=== PATIENT | male | born 1990 | race Caucasian/White ===

== ENCOUNTER 2021-09-01 19:02 | Inpatient (IN) ==
--- NOTE | 2021-09-01 19:26 | Emergency Department Note ---
History of Present Illness General Chief complaint: Mental Health Evaluation Stated complaint: MENTAL HEALTH EVAL Time Seen by Provider: 09/01/21 19:14 Source: patient, RN notes reviewed and police Mode of arrival: other (Police ) Limitations: no limitations History of Present Illness This patient is a 30-year-old male has history of bipolar disorder is brought in by the police after his and thought of hurting himself. He had been spending the night on campus with a friend and he says he ran out of money his family want help him he feels like they're stabbing in the back. He does take Trileptal and Depakote for bipolar and seizures is not had any for several days. He thought about walking in front of a car but did not he did not take any extra medicine or overdose denies aspirin or drug use no alcohol. Denies any street drugs. He feels he needs to come in for mental health help. He denies any physical complaints. He has not had the Covid vaccine. Denies cough or shortness of breath or fever or chills. Home Medications Medication Instructions Recorded Confirmed Type divalproex 250 mg tablet,extended 250 mg PO BID 08/31/21 09/01/21 History release 24 hr (Depakote ER) divalproex 500 mg tablet,extended 500 mg PO BID 08/31/21 09/01/21 History release 24 hr (Depakote ER) mirtazapine 15 mg tablet (Remeron) 15 mg PO HS 08/31/21 09/01/21 History oxcarbazepine 600 mg tablet 600 mg PO BID 08/31/21 09/01/21 History (Trileptal) divalproex 250 mg tablet,extended 250 mg PO BID 09/01/21 09/01/21 History release 24 hr (Depakote ER) divalproex 500 mg tablet,extended 500 mg PO BID 09/01/21 09/01/21 History release 24 hr (Depakote ER) Allergies Allergy/AdvReac Type Severity Reaction Status Date / Time No Known Allergies Allergy Verified 08/31/21 10:42 Past Med/Surg History Medical History Seizure disorder Social History Smoking Status: Never smoker Preferred Language: Moldovan Communication Ability: Effective Visual Impairment: No Limitations Hearing Ability: Normal marital status: Single Feels Safe at Home: Yes Review of Systems A total of 10 systems reviewed and were otherwise negative Physical Exam Vital Signs Vital Signs - 24 hr 09/01/21 19:23 09/01/21 21:01 Temperature 37.0 C Temperature Source Oral Pulse Rate 84 Pulse Rate [Left] 74 Pulse Rhythm Regular Pulse Rhythm [Left] Regular Pulse Strength Normal Pulse Strength [Left] Normal Respiratory Rate 18 18 Respiratory Effort / Characteristics Non-Labored Non-Labored Respiratory Depth Normal Normal Respiratory Pattern Regular Regular Blood Pressure 148/84 H Blood Pressure [Left Arm] 132/74 Blood Pressure Mean 105 Blood Pressure Mean [Left Arm] 93 Blood Pressure Position Sitting Blood Pressure Position [Left Arm] Lying Pulse Oximetry 99 99 Oxygen Delivery Method Room Air Room Air Sepsis Recent Fever Within 48 Hours No Sepsis New/Unexplained Change in Mental Status N/A Sepsis Action Taken by Nursing No Action Required General: Well developed well nourished in no acute distress, breathing comfortably on room air. Normal speech HEENT: Normal cephalic atraumatic. Pupils are equal round and reactive to light. Extraocular movements are intact. Oropharynx is pink with moist mucous membranes. No swelling of the mouth lips or tongue. Neck: Supple with a midline trachea. No meningeal signs or stiffness, no JVD or bruits. No Stridor. Chest: Clear to auscultation bilaterally. No wheezes or rhonchi. No increased work of breathing. Heart: Regular rate and rhythm without murmurs or gallops. Abdomen: Soft nontender, nondistended without rebound guarding or rigidity. Extremities: No cyanosis clubbing or edema. No calf tenderness or assymetry Spine/Back. Non tender to palpation. No CVA tenderness Skin: Good turgor without rashes. Neurologic exam: Cranial nerves two through 12 are intact. Motor and sensation are intact and symmetrical throughout. Psych: Normal thought process and affect. He has had suicidal thoughts. Medical Decision Making Differential Diagnosis Depression, anxiety, suicidal ideations, toxicologic, metabolic, Covid Medical Records Attestation: I reviewed the patient's medical records. Laboratory Data Attestation: I reviewed the patient's lab results. Result diagrams: 09/01/21 19:36 09/01/21 19:36 Lab Results 09/01/21 09/01/21 09/01/21 Range/Units 19:25 19:25 19:36 WBC 6.10 (4.8-10.8) K/uL RBC 4.91 (4.7-6.1) M/uL Hgb 14.6 (14.0-18.0) g/dL Hct 42.6 (42-52) % MCV 86.8 (80-100) fL MCH 29.7 (25-34) pg MCHC 34.3 (32-36) g/dL RDW Std Deviation 43.3 (36.4-46.3) fL RDW Coeff of Thai 13.6 (11.5-14.5) % Plt Count 158 (130-400) K/uL MPV 12.2 H (7.4-10.4) fL Immature Gran % (Auto) 0.0 % Neut % (Auto) 62.1 % Lymph % (Auto) 30.0 % Morgan % (Auto) 6.6 % Eos % (Auto) 1.1 % Baso % (Auto) 0.2 % Neut # (Auto) 3.79 (1.4-6.5) K/uL Lymph # (Auto) 1.83 (1.2-3.4) K/uL Morgan # (Auto) 0.40 (0.11-0.59) K/uL Eos # (Auto) 0.07 (0-0.5) K/uL Baso # (Auto) 0.01 (0-0.2) K/uL Immature Gran # (Auto) 0.00 (0.00-0.02) K/uL Sodium (136-145) mmol/L Potassium (3.5-5.1) mmol/L Chloride (98-107) mmol/L Carbon Dioxide (21-32) mmol/L Anion Gap (3-11) BUN (7-18) mg/dl Creatinine (0.6-1.4) mg/dl Est Cr Clr Drug Dosing ml/min Est GFR ( Amer) ml/min Est GFR (Non-Af Amer) ml/min BUN/Creatinine Ratio (10-20) Glucose (70-99) mg/dl Calcium (8.5-10.1) mg/dl Total Bilirubin (0.2-1) mg/dl AST (15-37) U/L ALT (12-78) U/L Alkaline Phosphatase (45-117) U/L Total Protein (6.4-8.2) gm/dl Albumin (3.4-5.0) gm/dl Globulin (2.5-4.0) gm/dl Albumin/Globulin Ratio (0.9-2) TSH (0.300-4.500) uIu/ml Free T4 (0.8-1.6) ng/dl Urine Color Yellow Urine Appearance Clear (Clear) Urine pH 7.0 (4.5-7.5) Ur Specific [place] 1.022 (1.000-1.030) Urine Protein Negative (Negative) Urine Glucose (UA) Negative (Negative) Urine Ketones Negative (Negative) Urine Blood Negative (Negative) Urine Nitrite Negative (Negative) Urine Bilirubin Negative (Negative) Urine Urobilinogen Negative (Negative) Ur Leukocyte Esterase Negative (Negative) Salicylates (2.8-20) mg/dl Urine Opiates Screen Neg (Neg) Ur Methadone, Qual Neg (Neg) Acetaminophen (10-30) ug/ml Urine Barbiturates Neg (Neg) Valproic Acid (50-100) mcg/ml Ur Phencyclidine (PCP) Neg (Neg) U Amphetamin/Meth Scrn Neg (Neg) MDMA (Ecstasy) Screen Neg (Neg) U Benzodiazepines Scrn Neg (Neg) Ur Cocaine Metabolite Neg (Neg) U Marijuana (THC) Screen Neg (Neg) Ethyl Alcohol mg/dL (0-3) mg/dl COVID-19 Eval Order SARS-CoV-2 (PCR) (Negative) 09/01/21 09/01/21 09/01/21 Range/Units 19:36 19:36 19:36 WBC (4.8-10.8) K/uL RBC (4.7-6.1) M/uL Hgb (14.0-18.0) g/dL Hct (42-52) % MCV (80-100) fL MCH (25-34) pg MCHC (32-36) g/dL RDW Std Deviation (36.4-46.3) fL RDW Coeff of Thai (11.5-14.5) % Plt Count (130-400) K/uL MPV (7.4-10.4) fL Immature Gran % (Auto) % Neut % (Auto) % Lymph % (Auto) % Morgan % (Auto) % Eos % (Auto) % Baso % (Auto) % Neut # (Auto) (1.4-6.5) K/uL Lymph # (Auto) (1.2-3.4) K/uL Morgan # (Auto) (0.11-0.59) K/uL Eos # (Auto) (0-0.5) K/uL Baso # (Auto) (0-0.2) K/uL Immature Gran # (Auto) (0.00-0.02) K/uL Sodium 140 (136-145) mmol/L Potassium 3.5 (3.5-5.1) mmol/L Chloride 105 (98-107) mmol/L Carbon Dioxide 26 (21-32) mmol/L Anion Gap 9.0 (3-11) BUN 16 (7-18) mg/dl Creatinine 0.80 (0.6-1.4) mg/dl Est Cr Clr Drug Dosing 149.7 ml/min Est GFR ( Amer) 139.9 ml/min Est GFR (Non-Af Amer) 120.7 ml/min BUN/Creatinine Ratio 20.4 H (10-20) Glucose 88 (70-99) mg/dl Calcium 9.3 (8.5-10.1) mg/dl Total Bilirubin 0.5 (0.2-1) mg/dl AST 22 (15-37) U/L ALT 28 (12-78) U/L Alkaline Phosphatase 74 (45-117) U/L Total Protein 7.4 (6.4-8.2) gm/dl Albumin 3.8 (3.4-5.0) gm/dl Globulin 3.6 (2.5-4.0) gm/dl Albumin/Globulin Ratio 1.1 (0.9-2) TSH 5.650 H (0.300-4.500) uIu/ml Free T4 1.12 (0.8-1.6) ng/dl Urine Color Urine Appearance (Clear) Urine pH (4.5-7.5) Ur Specific [place] (1.000-1.030) Urine Protein (Negative) Urine Glucose (UA) (Negative) Urine Ketones (Negative) Urine Blood (Negative) Urine Nitrite (Negative) Urine Bilirubin (Negative) Urine Urobilinogen (Negative) Ur Leukocyte Esterase (Negative) Salicylates < 1.7 L (2.8-20) mg/dl Urine Opiates Screen (Neg) Ur Methadone, Qual (Neg) Acetaminophen < 2 L (10-30) ug/ml Urine Barbiturates (Neg) Valproic Acid 5 L (50-100) mcg/ml Ur Phencyclidine (PCP) (Neg) U Amphetamin/Meth Scrn (Neg) MDMA (Ecstasy) Screen (Neg) U Benzodiazepines Scrn (Neg) Ur Cocaine Metabolite (Neg) U Marijuana (THC) Screen (Neg) Ethyl Alcohol mg/dL < 3.0 (0-3) mg/dl COVID-19 Eval Order SARS-CoV-2 (PCR) (Negative) 09/01/21 09/01/21 Range/Units 19:40 19:40 WBC (4.8-10.8) K/uL RBC (4.7-6.1) M/uL Hgb (14.0-18.0) g/dL Hct (42-52) % MCV (80-100) fL MCH (25-34) pg MCHC (32-36) g/dL RDW Std Deviation (36.4-46.3) fL RDW Coeff of Thai (11.5-14.5) % Plt Count (130-400) K/uL MPV (7.4-10.4) fL Immature Gran % (Auto) % Neut % (Auto) % Lymph % (Auto) % Morgan % (Auto) % Eos % (Auto) % Baso % (Auto) % Neut # (Auto) (1.4-6.5) K/uL Lymph # (Auto) (1.2-3.4) K/uL Morgan # (Auto) (0.11-0.59) K/uL Eos # (Auto) (0-0.5) K/uL Baso # (Auto) (0-0.2) K/uL Immature Gran # (Auto) (0.00-0.02) K/uL Sodium (136-145) mmol/L Potassium (3.5-5.1) mmol/L Chloride (98-107) mmol/L Carbon Dioxide (21-32) mmol/L Anion Gap (3-11) BUN (7-18) mg/dl Creatinine (0.6-1.4) mg/dl Est Cr Clr Drug Dosing ml/min Est GFR ( Amer) ml/min Est GFR (Non-Af Amer) ml/min BUN/Creatinine Ratio (10-20) Glucose (70-99) mg/dl Calcium (8.5-10.1) mg/dl Total Bilirubin (0.2-1) mg/dl AST (15-37) U/L ALT (12-78) U/L Alkaline Phosphatase (45-117) U/L Total Protein (6.4-8.2) gm/dl Albumin (3.4-5.0) gm/dl Globulin (2.5-4.0) gm/dl Albumin/Globulin Ratio (0.9-2) TSH (0.300-4.500) uIu/ml Free T4 (0.8-1.6) ng/dl Urine Color Urine Appearance (Clear) Urine pH (4.5-7.5) Ur Specific [place] (1.000-1.030) Urine Protein (Negative) Urine Glucose (UA) (Negative) Urine Ketones (Negative) Urine Blood (Negative) Urine Nitrite (Negative) Urine Bilirubin (Negative) Urine Urobilinogen (Negative) Ur Leukocyte Esterase (Negative) Salicylates (2.8-20) mg/dl Urine Opiates Screen (Neg) Ur Methadone, Qual (Neg) Acetaminophen (10-30) ug/ml Urine Barbiturates (Neg) Valproic Acid (50-100) mcg/ml Ur Phencyclidine (PCP) (Neg) U Amphetamin/Meth Scrn (Neg) MDMA (Ecstasy) Screen (Neg) U Benzodiazepines Scrn (Neg) Ur Cocaine Metabolite (Neg) U Marijuana (THC) Screen (Neg) Ethyl Alcohol mg/dL (0-3) mg/dl COVID-19 Eval Order Covid19 at [facility] SARS-CoV-2 (PCR) NEGATIVE (Negative) MDM Narrative This patient comes in as described above. He was placed in room a 8. He is here for treatment and evaluation of mental health disorder. He has had suicidal ideation. Multiple blood testing was obtained for medical clearance he is voluntary. He was medically cleared. There is nothing to suggest acute metabolic, toxicologic, infection, or other etiology. Covid testing was negative. Nathaniel is reviewing the chart and there are no beds available tonight. The patient be signed out at shift change to Dr. Jhon ortiz up on the placement. I did order the patient's normal medications and confirm them with our pharmacist as well as the patient. Impression & Plan Depression, Suicidal ideations, Seizure disorder, Lab test negative for COVID- 19 virus Discharge Plan Visit Data Chief Complaint: Mental Health Evaluation Stated Complaint: MENTAL HEALTH EVAL ED Provider: Mina Fernández Discharge Problem: Depression, Suicidal ideations, Seizure disorder, Lab test negative for COVID- 19 virus Forms Stand Alone Forms: My [facility], Suicide Prevention Resources Prescriptions Prescriptions: No Action divalproex [Depakote ER] 500 mg tablet extended release 24 hr 500 mg PO BID RF: 0 oxcarbazepine [Trileptal] 600 mg tablet 600 mg PO BID RF: 0 mirtazapine [Remeron] 15 mg tablet 15 mg PO HS RF: 0 divalproex [Depakote ER] 250 mg tablet extended release 24 hr 250 mg PO BID RF: 0 divalproex [Depakote ER] 250 mg tablet extended release 24 hr 250 mg PO BID RF: 0 divalproex [Depakote ER] 500 mg tablet extended release 24 hr 500 mg PO BID RF: 0 Referrals Referrals: PCP,NO [Primary Care Provider] - Discharge Problem: Depression Qualifiers: Depression Type: unspecified Qualified Code(s): F32.A - Depression, unspecified
[2021-09-01 19:52] LABS: Appearance Urine Clear (Clear); Bilirubin Urine Negative (Negative); Blood Urine Negative (Negative); Color Urine Yellow; Glucose Urine UA Negative (Negative); Ketones Urine Negative (Negative); Leukocyte Esterase Urine Negative (Negative); Nitrite Urine Negative (Negative); Protein Urine Negative (Negative); Specific Gravity Urine 1.022 (1.000-1.030); Urobilinogen Urine Negative (Negative)
[2021-09-01 19:55] LABS: Basophils # (auto) 0.01 K/uL (0-0.2); Basophils % (auto) 0.2 %; Eosinophils # (auto) 0.07 K/uL (0-0.5); Eosinophils % (auto) 1.1 %; Hematocrit (blood only) 42.6 % (42-52); Hemoglobin 14.6 g/dL (14.0-18.0); Lymphocytes # (auto) 1.83 K/uL (1.2-3.4); Mean Corpuscular Hemoglobin 29.7 pg (25-34); Mean Corpuscular Hgb Conc 34.3 g/dL (32-36); Mean Corpuscular Volume 86.8 fL (80-100); Mean Platelet Volume 12.2 fL (7.4-10.4); Monocytes % (auto) 6.6 %; Neutrophils # (auto) 3.79 K/uL (1.4-6.5); Neutrophils % (auto) 62.1 %; Platelet Count 158 K/uL (130-400); RDW Coefficient of Variation 13.6 % (11.5-14.5); RDW Standard Deviation 43.3 fL (36.4-46.3); Red Blood Count 4.91 M/uL (4.7-6.1)
[2021-09-01 20:22] LABS: Acetaminophen < 2 ug/ml (10-30); Albumin Level 3.8 gm/dl (3.4-5.0); BUN Creatinine Ratio 20.4 (10-20); Calcium 9.3 mg/dl (8.5-10.1); Creatinine Clr Calc Pharmacy 149.7 ml/min; Est GFR (African American) 139.9 ml/min; Est GFR (Non-African American) 120.7 ml/min; Potassium 3.5 mmol/L (3.5-5.1); Salicylate < 1.7 mg/dl (2.8-20); Valproic Acid 5 mcg/ml (50-100)
[2021-09-01 20:29] LABS: Amphetamines+Metham, Urine Neg (Neg); Barbiturates, Urine Neg (Neg); Benzodiazepine, Urine Neg (Neg); Cocaine, Urine Neg (Neg); MDMA (Ecstacy), Urine Neg (Neg); Methadone, Urine Neg (Neg); Opiate, Urine Neg (Neg); Phencyclidine, Urine Neg (Neg)
[2021-09-01 20:32] LABS: Albumin Globulin Ratio 1.1 (0.9-2); Bilirubin,Total 0.5 mg/dl (0.2-1); Globulin 3.6 gm/dl (2.5-4.0); Thyroid Stimulating Hormone 5.65 uIu/ml (0.300-4.500); Total Protein 7.4 gm/dl (6.4-8.2)
[2021-09-01 20:44] LABS: T4 Free Thyroxine 1.12 ng/dl (0.8-1.6)
[2021-09-02] MEDS ORDERED: MIRTAZAPINE TAB 15 MG TAB PO STA (00:41)
[2021-09-02] MEDS: DIVALPROEX EXTENDED RELEASE 500 MG TAB PO SCH ×2 (00:45→09:25)
[2021-09-02] MEDS: DIVALPROEX EXTENDED RELEASE 250 MG TABCR PO SCH ×3 (00:46→22:14)
[2021-09-02] MEDS: OXcarbazepine 150 MG TABLET PO SCH ×3 (00:46→22:14)
--- NOTE | 2021-09-02 06:36 | Emergency Department Note ---
ED Visit Note I received this patient in signout at the change of shift from Dr. Fernández awaiting a psychiatric bed search. Patient presented suicidal with a plan to walk into traffic. He is voluntary for admission at this time. Please refer to previous documentation for further details of the history, physical and visit. . : Depression Qualifiers: Depression Type: unspecified Qualified Code(s): F32.A - Depression, unspecified
[2021-09-02] MEDS ORDERED: BISMUTH SUBSALICYLATE LIQD 236 ML PO PRN (10:07)
[2021-09-02] MEDS ORDERED: ALUMINUM/MAGNESIUM SUSP 30 ML UDC PO PRN (10:07)
[2021-09-02] MEDS ORDERED: hydrOXYzine HCl 25 MG TAB PO PRN ×2 (10:07)
[2021-09-02] MEDS ORDERED: SODIUM CHLORIDE 0.65% NA SOLN 45 ML (OCEAN) PRN (10:07)
[2021-09-02] MEDS ORDERED: ACETAMINOPHEN 325 MG TAB PO PRN (10:07)
[2021-09-02] MEDS ORDERED: MAGNESIUM HYDROXIDE SUSP 30 ML UDC PO PRN (10:07)
--- NOTE | 2021-09-02 10:40 | Emergency Department Note ---
ED Visit Note The patient was signed out to me awaiting mental health evaluation. The patient was accepted at [facility] [address]. . : Depression Qualifiers: Depression Type: unspecified Qualified Code(s): F32.A - Depression, unspecified
[2021-09-02] MEDS ORDERED: FLUARIX QUADRIVALENT 0.5 ML SYR IM ONE (15:01)
[2021-09-02] MEDS ORDERED: DIVALPROEX EXTENDED RELEASE 250 MG TABCR PO ONE (16:12)
--- NOTE | 2021-09-02 16:19 | History & Physical ---
Date of Service September 02, 2021 Impression / Recommendations Impression The patient is a is a 30-year-old man who is currently homeless with a history of depression, TBI and anger, multiple prior psychiatric hospitalizations (most recently at [facility] from 08/22-08/26) and was admitted for SI and suicide attempt of trying to step in front of a moving car. The patient is deemed unstable and requires psychiatric hospitalization for diagnostic clarification, safety and stabilization, medication management and development of further coping skills. Diagnostically consistent with MDD and TBI sequelae. -201 voluntary status (1) Major depression, recurrent: (2) Suicidal ideation: 09/02/21--Discussed medication options at length including risks, benefits, alternatives. Patient consented to increasing mirtazapine from 15 mg to 30 mg to help address depression and insomnia. May consider addition of leaxpro as he believes he has never tried this to help with depression but will wait to review recent records from [facility]. Will continue depakote and trileptal for seizures which he consents to. The patient was admitted to the [facility] on q15 min checks (behavioral with suicide precautions) for safety. The patient will participate in group, recreational, and milieu therapies and will be offered additional individual and family sessions as clinically appropriate. Inventory Assets Strengths: has coping skills of exercising, positive relationship with his mother, likes to help others Needs: housing, outpatient providers Risk Factors Assessment Male: Yes : Yes Do You Have Access To A Gun?: No Health Problems: Yes Mental Health Diagnoses: Yes Substance Use Disorders: No Previous Attempt: Yes Family History of Suicide: No Previous Psychiatric Hospitalization: Yes Hopelessness: No Protective Factors Assessment Employed: No Supportive Family: Yes Psychiatric History Identifying Data DEVYN MONTANEZ is a 30-year-old man who is currently homeless with a history of depression, TBI and anger, multiple prior psychiatric hospitalizations (most recently at [facility] from 08/22-08/26) and was admitted on 09/02/21 10:07 on a 201 voluntary commitment for SI and suicide attempt of trying to step in front of a moving car. Chief Complaint "I think they let me go to early before I was ready". History of Present Illness Devyn presents for psychiatric admission for SI and suicide attempt via walking into traffic in the context of a history of depression and recent psychosocial stressors. He was recently discharged from [facility] psychiatry unit on 08/26/21 for depression and SI. After leaving he returned home with his girlfriend in [place] but they then broke up and he had to leave. Since that time, for about 4 days, he hasn't had access to his medication. On 08/31 he presented to the ED due to chest pain and after discharge was staying in the [facility] the [facility] for the last two days. Yesterday he broke up with an older girlfriend he reconnected with which was a stressor and then when he tried talking to his brother his brother made hurtful comments including "no one would miss you if you were gone" which prompted him to feel suicidal and resulted in the suicide attempt of trying to step in front of a car. Currently he endorses depressive symptoms of low mood, hopelessness, anhedonia, decreased sleep, decreased energy, low appetite and SI. Currently has SI but without plan or intent and feels safe on the unit and that he can talk to nursing should thoughts intensify. Pertinent ROS notable for anxiety, history of panic attacks (twice in the past), hx of psychotic symptoms in the past of , no hx of brie, no significant substance use, hx prior suicide attempts, at times experiences flashbacks and night terrors related to trauma, hx seizures last seizure was one month ago related to stress. Past Psychiatric History Previous Psych History: MDD, anxiety, head injuries, anger Current Psychiatric Diagnosis: Depression, SI and SIB Outpatient Services: none currently Previous Psych Admissions: [facility], [place], [facility], [place] Do You Have Access To A Gun?: No History of Previous Suicide Attempt: Yes Describe Attempts in the Past: held knife to throat with intention to kill himself in the past Past Medication Trials: zoloft, prozac, seroquel, abilify, trazodone Past Head Trauma/Neuro History History of Concussion/Seizure: Yes hx major head injury/TBI many years ago due to rugby injury causing LOC and hospitalization, hx head injuries from boxing Allergies Allergy/AdvReac Type Severity Reaction Status Date / Time No Known Allergies Allergy Verified 08/31/21 10:42 Home Medications Medication Instructions Recorded Confirmed Type divalproex 250 mg tablet,extended 250 mg PO BID 08/31/21 09/01/21 History release 24 hr (Depakote ER) divalproex 500 mg tablet,extended 500 mg PO BID 08/31/21 09/01/21 History release 24 hr (Depakote ER) mirtazapine 15 mg tablet (Remeron) 15 mg PO HS 08/31/21 09/01/21 History oxcarbazepine 600 mg tablet 600 mg PO BID 08/31/21 09/01/21 History (Trileptal) Family History Family History of: None Alcohol History Hx of Alcohol Use Over the Past 12 Months: Yes (2 drinks last night) AUDIT Total Score: 2 Smoking Use Have You Smoked or Used Tobacco Products in the Last 30 Days: No Smoking Status: Never smoker Substance History Hx of Prescription Med Misuse Over the Past 12 Months: No Hx of Over the Counter Med Misuse Over the Past 12 Months: No Hx of Inhalent Misuse Over the Past 12 Months: No Hx of Organic Substance Use Over the Past 12 Months: No Hx of Illegal Substances/Street Drug Use Over Past 12 Months: No Problems as a Result of Past Substance Use: None Identified Personal History Living Arrangements: Homeless Living Arrangements Comments: patient is homeless at this time. was staying at at the [facility]. Previously, he was living with girlfriend in [place] or [place]. Highest Grade Completed: High School Graduate Employment Status: Self-Employed (works as personal health coach as self-employed) Marital Status: Single Number Of Children: 0 Beliefs That Will Affect Care: None Current Legal Problems: No Hx Legal Problems: Yes Hx Traumatic Life Events: Yes Patient History Medical History (Updated 09/02/21 @ 16:38 by Stacy Lopez MD) Major depression, recurrent Seizure disorder Suicidal ideation TBI (traumatic brain injury) Social History Smoking Status: Never smoker Preferred Language: Uzbek Communication Ability: Effective Visual Impairment: No Limitations Hearing Ability: Normal Detail Manager Required: No Beliefs That Will Affect Care: None marital status: Single Feels Safe at Home: Yes Assistive Devices: None Review of Systems Review of Systems: All systems reviewed & are unremarkable except as noted in HPI & below Physical Exam Psychiatric: Orientation: alert and oriented x 3 Apperance: appropriately dressed and appropriately groomed Eye Contact: good eye contact Motor Behavior: steady gait and station and no abnormal motor movements Speech: normal rate/rhythm/volume of speech Affect: + flat affect Mood: + depressed mood Thought Process: goal directed thought process Thought Content: reality based without delusions Suicidal Thoughts: denies suicidal plan and denies suicidal intent active SI Homicidal Thoughts: denies homicidal thoughts Hallucinations: no auditory hallucinations and no visual hallucinations Cognition: recent memory grossly intact, remote memory grossly intact, attention grossly intact and language grossly intact Estimated In telligence: consistent with education level Insight: + fair insight Judgement: + fair judgement Vital Signs (Past 24 Hours): Last Vital Signs Temp 37.0 C 09/01/21 19:23 Pulse 68 09/02/21 11:36 Resp 18 09/02/21 11:36 BP 133/71 09/02/21 11:36 Pulse Ox 98 09/02/21 10:44 Physical Examination: A physical exam was performed in the ED by Dr. Fernández for the purposes of medical clearance. I accept that physical as correct and adequate for the purposes of the inpatient physical exam. Results & Data ([facility]) Laboratory Results Laboratory Results - last 24 hr 09/01/21 09/01/21 09/01/21 19:25 19:25 19:36 WBC 6.10 RBC 4.91 Hgb 14.6 Hct 42.6 MCV 86.8 MCH 29.7 MCHC 34.3 RDW Std Deviation 43.3 RDW Coeff of Thai 13.6 Plt Count 158 MPV 12.2 H Immature Gran % (Auto) 0.0 Neut % (Auto) 62.1 Lymph % (Auto) 30.0 [place] % (Auto) 6.6 Eos % (Auto) 1.1 Baso % (Auto) 0.2 Neut # (Auto) 3.79 Lymph # (Auto) 1.83 [place] # (Auto) 0.40 Eos # (Auto) 0.07 Baso # (Auto) 0.01 Immature Gran # (Auto) 0.00 Sodium Potassium Chloride Carbon Dioxide Anion Gap BUN Creatinine Est Cr Clr Drug Dosing Est GFR ( Amer) Est GFR (Non-Af Amer) BUN/Creatinine Ratio Glucose Calcium Total Bilirubin AST ALT Alkaline Phosphatase Total Protein Albumin Globulin Albumin/Globulin Ratio TSH Free T4 Urine Color Yellow Urine Appearance Clear Urine pH 7.0 Ur Specific [place] 1.022 Urine Protein Negative Urine Glucose (UA) Negative Urine Ketones Negative Urine Blood Negative Urine Nitrite Negative Urine Bilirubin Negative Urine Urobilinogen Negative Ur Leukocyte Esterase Negative Salicylates Urine Opiates Screen Neg Ur Methadone, Qual Neg Acetaminophen Urine Barbiturates Neg Valproic Acid Ur Phencyclidine (PCP) Neg U Amphetamin/Meth Scrn Neg MDMA (Ecstasy) Screen Neg U Benzodiazepines Scrn Neg Ur Cocaine Metabolite Neg U Marijuana (THC) Screen Neg Ethyl Alcohol mg/dL COVID-19 Eval Order SARS-CoV-2 (PCR) 09/01/21 09/01/21 09/01/21 19:36 19:36 19:36 WBC RBC Hgb Hct MCV MCH MCHC RDW Std Deviation RDW Coeff of Thai Plt Count MPV Immature Gran % (Auto) Neut % (Auto) Lymph % (Auto) [place] % (Auto) Eos % (Auto) Baso % (Auto) Neut # (Auto) Lymph # (Auto) [place] # (Auto) Eos # (Auto) Baso # (Auto) Immature Gran # (Auto) Sodium 140 Potassium 3.5 Chloride 105 Carbon Dioxide 26 Anion Gap 9.0 BUN 16 Creatinine 0.80 Est Cr Clr Drug Dosing 149.7 Est GFR ( Amer) 139.9 Est GFR (Non-Af Amer) 120.7 BUN/Creatinine Ratio 20.4 H Glucose 88 Calcium 9.3 Total Bilirubin 0.5 AST 22 ALT 28 Alkaline Phosphatase 74 Total Protein 7.4 Albumin 3.8 Globulin 3.6 Albumin/Globulin Ratio 1.1 TSH 5.650 H Free T4 1.12 Urine Color Urine Appearance Urine pH Ur Specific [place] Urine Protein Urine Glucose (UA) Urine Ketones Urine Blood Urine Nitrite Urine Bilirubin Urine Urobilinogen Ur Leukocyte Esterase Salicylates < 1.7 L Urine Opiates Screen Ur Methadone, Qual Acetaminophen < 2 L Urine Barbiturates Valproic Acid 5 L Ur Phencyclidine (PCP) U Amphetamin/Meth Scrn MDMA (Ecstasy) Screen U Benzodiazepines Scrn Ur Cocaine Metabolite U Marijuana (THC) Screen Ethyl Alcohol mg/dL < 3.0 COVID-19 Eval Order SARS-CoV-2 (PCR) 09/01/21 09/01/21 19:40 19:40 WBC RBC Hgb Hct MCV MCH MCHC RDW Std Deviation RDW Coeff of Thai Plt Count MPV Immature Gran % (Auto) Neut % (Auto) Lymph % (Auto) [place] % (Auto) Eos % (Auto) Baso % (Auto) Neut # (Auto) Lymph # (Auto) [place] # (Auto) Eos # (Auto) Baso # (Auto) Immature Gran # (Auto) Sodium Potassium Chloride Carbon Dioxide Anion Gap BUN Creatinine Est Cr Clr Drug Dosing Est GFR ( Amer) Est GFR (Non-Af Amer) BUN/Creatinine Ratio Glucose Calcium Total Bilirubin AST ALT Alkaline Phosphatase Total Protein Albumin Globulin Albumin/Globulin Ratio TSH Free T4 Urine Color Urine Appearance Urine pH Ur Specific [place] Urine Protein Urine Glucose (UA) Urine Ketones Urine Blood Urine Nitrite Urine Bilirubin Urine Urobilinogen Ur Leukocyte Esterase Salicylates Urine Opiates Screen Ur Methadone, Qual Acetaminophen Urine Barbiturates Valproic Acid Ur Phencyclidine (PCP) U Amphetamin/Meth Scrn MDMA (Ecstasy) Screen U Benzodiazepines Scrn Ur Cocaine Metabolite U Marijuana (THC) Screen Ethyl Alcohol mg/dL COVID-19 Eval Order Covid19 at [facility] SARS-CoV-2 (PCR) NEGATIVE Current Inpatient Medications Current Inpatient Medications: Current Inpatient Medications Acetaminophen (Acetaminophen 325 Mg Tab) 650 mg PO Q4H PRN PRN Reason: Headache or Minor Fever Stop: 10/02/21 10:06 Al Hydrox/Mg Hydrox/Simethicone (Aluminum/Magnesium Susp 30 Ml Udc) 30 ml PO Q4H PRN PRN Reason: GI Upset Stop: 10/02/21 10:06 Bismuth Subsalicylate (Bismuth Subsalicylate Liqd 236 Ml) 15 ml PO PRN PRN PRN Reason: Loose Stool Stop: 10/02/21 10:06 Hydroxyzine HCl (Hydroxyzine Hcl 25 Mg Tab) 50 mg PO HSZ PRN PRN Reason: Insomnia Stop: 10/02/21 10:06 Hydroxyzine HCl (Hydroxyzine Hcl 25 Mg Tab) 25 mg PO Q4H PRN PRN Reason: Anxiety Stop: 10/02/21 10:06 Magnesium Hydroxide (Magnesium Hydroxide Susp 30 Ml Udc) 30 ml PO DAILY PRN PRN Reason: Constipation Stop: 10/02/21 10:06 Sodium Chloride (Sodium Chloride 0.65% Na Soln 45 Ml ([place])) 1 - 2 sprays NA PRN PRN PRN Reason: Nasal Dryness/Congestion Stop: 10/02/21 10:06
[2021-09-02] MEDS ORDERED: MIRTAZAPINE TAB 15 MG TAB PO SCH (21:00)
[2021-09-02] MEDS: MIRTAZAPINE TAB 15 MG TAB PO SCH (22:14)
[2021-09-03] MEDS: DIVALPROEX EXTENDED RELEASE 250 MG TABCR PO SCH ×2 (09:03→21:11)
[2021-09-03] MEDS: OXcarbazepine 150 MG TABLET PO SCH ×2 (09:03→21:13)
--- NOTE | 2021-09-03 17:13 | Psychiatric Progress Note ---
Date of Service September 03, 2021 Impression / Recommendations Impression The patient is a is a 30-year-old man who is currently homeless with a history of depression, TBI and anger, multiple prior psychiatric hospitalizations (most recently at [facility] from 08/22-08/26) and was admitted for SI and suicide attempt of trying to step in front of a moving car. The patient is deemed unstable and requires psychiatric hospitalization for diagnostic clarification, safety and stabilization, medication management and development of further coping skills. Diagnostically consistent with MDD and TBI sequelae as well as likely BPD given positive screen and discussion about struggles with rejection and how this prompts self-harm and SI. Discussed importance of therapy, ideally DBT, moving forward depending on where he ends of living permantently eventually. He continues to have depression and would like to start an SSRI, lexapro. Discussed medication treatment options in detail. Discussed risks, benefits and alternatives. Patient would like to start lexapro for MDD. Counseled on black box warning of potential for emergence of or increased SI and need to let staff know should this occur or should they feel unsafe. Also discussed importance of seeking emergency care following discharge if this side effect occurs in the future. -201 voluntary status (1) Major depression, recurrent: (2) Suicidal ideation: 09/03/21--Addition of lexapro 5 mg qd for depression, will aim for low dose given hx of TBI and increased medication sensitivity associated with this. Has symptoms consistent with BPD and positive ras screen. Discussed goals of ideally doing DBT therapy as an outpatient once he decides where to live. 09/02/21--Discussed medication options at length including risks, benefits, alternatives. Patient consented to increasing mirtazapine from 15 mg to 30 mg to help address depression and insomnia. May consider addition of leaxpro as he believes he has never tried this to help with depression but will wait to review recent records from [facility]. Will continue depakote and trileptal for seizures which he consents to. The patient was admitted to [facility] ([facility]) on q15 min checks (behavioral with suicide precautions) for safety. The patient will participate in group, recreational, and milieu therapies and will be offered additional individual and family sessions as clinically appropriate. Inventory Assets Strengths: has coping skills of exercising, positive relationship with his mother, likes to help others Needs: housing, outpatient providers Risk Factors Assessment Male: Yes : Yes Do You Have Access To A Gun?: No Health Problems: Yes Mental Health Diagnoses: Yes Substance Use Disorders: No Previous Attempt: Yes Family History of Suicide: No Previous Psychiatric Hospitalization: Yes Hopelessness: No Protective Factors Assessment Employed: No Supportive Family: Yes Interval History Identifying Information 30 yo man with history of depression, TBI, anger admitted on a 201 status for suicide behavior of attempting to step in front of a car. Chief Complaint "I'm ok, was having a hard time earlier". Review of Systems Sleep Information Total Hours of Sleep: 6.5 Meal Information Percent Meal Consumed - Breakfast: 100 Percent Meal Consumed - Lunch: 100 Percent Meal Consumed - Dinner: 100 Subjective Subjective Chart and events of last 24 hours reviewed and discussed with multidisciplinary treatment team including nursing and social work. No acute events reported overnight. Slept well. Eating well. Attending groups. Adherent with medications. Devyn reports difficult mood earlier in the day with strong feelings of rejection and subsequent urges to self-harm and SI after talking with his family. Maritza ontinues to feel worried about where he will live when he leaves the hospital. Continues to be depressed. Completed Ras Screen for BPD with positive screen especially for lots of breakups, suicide attempts, impulsivity, chris, very angry a lot of the time, lack of identity, and avoiding feeling abandoned. Spent more than 20 minutes in the care and coordination of this patient of which greater than 50% was dedicated to counseling and coordination of care. Physical Exam Psychiatric Orientation: alert and oriented x 3 Apperance: appropriately dressed and appropriately groomed Eye Contact: good eye contact Motor Behavior: steady gait and station and no abnormal motor movements Speech: normal rate/rhythm/volume of speech Affect: + flat affect Mood: + depressed mood Thought Process: goal directed thought process Thought Content: reality based without delusions Suicidal Thoughts: denies suicidal plan and denies suicidal intent Homicidal Thoughts: denies homicidal thoughts Hallucinations: no auditory hallucinations and no visual hallucinations Cognition: recent memory grossly intact, remote memory grossly intact, attention grossly intact and language grossly intact Estimated Intelligence: consistent with education level Insight: + fair insight Judgement: + fair judgement Vital Signs (Past 24 Hours) Last Vital Signs Temp 36.4 C L 09/03/21 06:36 Pulse 65 09/03/21 06:40 Resp 16 09/03/21 06:36 BP 128/82 09/03/21 06:40 Pulse Ox 98 09/02/21 10:44 A physical exam was performed in the ED by Dr. Fernández for the purposes of medical clearance. I accept that physical as correct and adequate for the purposes of the inpatient physical exam. Results & Data ([facility]) Current Inpatient Medications Current Inpatient Medications: Current Inpatient Medications Acetaminophen (Acetaminophen 325 Mg Tab) 650 mg PO Q4H PRN PRN Reason: Headache or Minor Fever Stop: 10/02/21 10:06 Al Hydrox/Mg Hydrox/Simethicone (Aluminum/Magnesium Susp 30 Ml Udc) 30 ml PO Q4H PRN PRN Reason: GI Upset Stop: 10/02/21 10:06 Bismuth Subsalicylate (Bismuth Subsalicylate Liqd 236 Ml) 15 ml PO PRN PRN PRN Reason: Loose Stool Stop: 10/02/21 10:06 Divalproex Sodium (Divalproex Extended Release 250 Mg Tabcr) 750 mg PO BID NEVAEH Stop: 10/02/21 20:59 Last Admin: 09/03/21 09:03 Dose: 750 mg Documented by: Hydroxyzine HCl (Hydroxyzine Hcl 25 Mg Tab) 50 mg PO HSZ PRN PRN Reason: Insomnia Stop: 10/02/21 10:06 Hydroxyzine HCl (Hydroxyzine Hcl 25 Mg Tab) 25 mg PO Q4H PRN PRN Reason: Anxiety Stop: 10/02/21 10:06 Last Admin: 09/03/21 09:57 Dose: 25 mg Documented by: Magnesium Hydroxide (Magnesium Hydroxide Susp 30 Ml Udc) 30 ml PO DAILY PRN PRN Reason: Constipation Stop: 10/02/21 10:06 Mirtazapine (Mirtazapine Tab 15 Mg Tab) 30 mg PO HS NEAVEH Stop: 10/02/21 21:59 Last Admin: 09/02/21 22:14 Dose: 30 mg Documented by: Oxcarbazepine (Oxcarbazepine 150 Mg Tablet) 600 mg PO BID NEVAEH Stop: 10/02/21 20:59 Last Admin: 09/03/21 09:03 Dose: 600 mg Documented by: Sodium Chloride (Sodium Chloride 0.65% Na Soln 45 Ml ([place])) 1 - 2 sprays NA PRN PRN PRN Reason: Nasal Dryness/Congestion Stop: 10/02/21 10:06 Post Discharge Appointments Primary Care Physician Name Of Family Doctor: [facility]
[2021-09-03] MEDS: MIRTAZAPINE TAB 15 MG TAB PO SCH (21:15)
[2021-09-04] MEDS: OXcarbazepine 150 MG TABLET PO SCH ×2 (09:08→20:22)
[2021-09-04] MEDS: ESCITALOPRAM OXALATE 10 MG TAB PO SCH (09:09)
[2021-09-04] MEDS: DIVALPROEX EXTENDED RELEASE 250 MG TABCR PO SCH ×2 (09:09→20:21)
--- NOTE | 2021-09-04 16:33 | Psychiatric Progress Note ---
Date of Service September 04, 2021 Impression / Recommendations Impression The patient is a is a 30-year-old man who is currently homeless with a history of depression, TBI and anger, multiple prior psychiatric hospitalizations (most recently at [facility] from 08/22-08/26) and was admitted for SI and suicide attempt of trying to step in front of a moving car. The patient is deemed unstable and requires psychiatric hospitalization for diagnostic clarification, safety and stabilization, medication management and development of further coping skills. Diagnostically consistent with MDD and TBI sequelae as well as likely BPD given positive screen and discussion about struggles with rejection and how this prompts self-harm and SI. Responding well to lexapro so far without any side effects and showing some improvement today without any urges for self-harm though continues to endorse depression specifically related to lack of housing stressor and familial discord. -201 voluntary status (1) Major depression, recurrent: (2) Suicidal ideation: 09/04/21--Continue with current regimen. Will plan to increase lexapro in 1-2 days if it continues to be well tolerated at 5mg. Encouraging exercise as a way to cope with depression or feelings of rejection as this is a strength and positive activity in his life. 09/03/21--Addition of lexapro 5 mg qd for depression, will aim for low dose given hx of TBI and increased medication sensitivity associated with this. Has symptoms consistent with BPD and positive cherri screen. Discussed goals of ideally doing DBT therapy as an outpatient once he decides where to live. 09/02/21--Discussed medication options at length including risks, benefits, alternatives. Patient consented to increasing mirtazapine from 15 mg to 30 mg to help address depression and insomnia. May consider addition of leaxpro as he believes he has never tried this to help with depression but will wait to review recent records from [facility]. Will continue depakote and trileptal for seizures which he consents to. [facility] patient [facility] ([facility] inpatient mental health unit) on q15 min checks (behavioral with suicide precautions) for safety. The patient will participate in group, recreational, and milieu therapies and will be offered additional individual and family sessions as clinically appropriate. Inventory Assets Strengths: has coping skills of exercising, positive relationship with his mother, likes to help others Needs: housing, outpatient providers Risk Factors Assessment Male: Yes : Yes Do You Have Access To A Gun?: No Health Problems: Yes Mental Health Diagnoses: Yes Substance Use Disorders: No Previous Attempt: Yes Family History of Suicide: No Previous Psychiatric Hospitalization: Yes Hopelessness: No Protective Factors Assessment Employed: No Supportive Family: Yes Interval History Identifying Information 30 yo man with history of depression, TBI, anger admitted on a 201 status for suicide behavior of attempting to step in front of a car. Chief Complaint "I liked exercising in the group". Review of Systems Sleep Information Total Hours of Sleep: 7 Meal Information Percent Meal Consumed - Breakfast: 100 Percent Meal Consumed - Lunch: 100 Percent Meal Consumed - Dinner: 100 Subjective Subjective Chart and events of last 24 hours reviewed and discussed with multidisciplinary treatment team including nursing and social work. No acute events reported overnight. Slept well. Eating well. Attending groups. Adherent with medications. They report depressed mood and concerns about discharging too early, discussed taking things one day at a time. No reported side effects from his medication including the new lexapro. Spent more than 20 minutes in the care and coordination of this patient of which greater than 50% was dedicated to counseling and coordination of care. Physical Exam Psychiatric Orientation: alert and oriented x 3 Apperance: appropriately dressed and appropriately groomed Eye Contact: good eye contact Motor Behavior: steady gait and station and no abnormal motor movements Speech: normal rate/rhythm/volume of speech Affect: + flat affect Mood: + depressed mood Thought Process: goal directed thought process Thought Content: reality based without delusions Suicidal Thoughts: denies suicidal plan and denies suicidal intent Homicidal Thoughts: denies homicidal thoughts Hallucinations: no auditory hallucinations and no visual hallucinations Cognition: recent memory grossly intact, remote memory grossly intact, attention grossly intact and language grossly intact Estimated Intelligence: consistent with education level Insight: + fair insight Judgement: + fair judgement Vital Signs (Past 24 Hours) Last Vital Signs Temp 36.4 C L 09/04/21 06:00 Pulse 65 09/04/21 06:44 Resp 16 09/04/21 06:00 BP 106/71 09/04/21 06:44 Pulse Ox 98 09/02/21 10:44 A physical exam was performed in the ED by Dr. Fernández for the purposes of medical clearance. I accept that physical as correct and adequate for the purposes of the inpatient physical exam. Results & Data ([facility]) Current Inpatient Medications Current Inpatient Medications: Current Inpatient Medications Acetaminophen (Acetaminophen 325 Mg Tab) 650 mg PO Q4H PRN PRN Reason: Headache or Minor Fever Stop: 10/02/21 10:06 Al Hydrox/Mg Hydrox/Simethicone (Aluminum/Magnesium Susp 30 Ml Udc) 30 ml PO Q4H PRN PRN Reason: GI Upset Stop: 10/02/21 10:06 Bismuth Subsalicylate (Bismuth Subsalicylate Liqd 236 Ml) 15 ml PO PRN PRN PRN Reason: Loose Stool Stop: 10/02/21 10:06 Divalproex Sodium (Divalproex Extended Release 250 Mg Tabcr) 750 mg PO BID NEVAEH Stop: 10/02/21 20:59 Last Admin: 09/04/21 09:09 Dose: 750 mg Documented by: Escitalopram Oxalate (Escitalopram Oxalate 10 Mg Tab) 5 mg PO QAM NEVAEH Stop: 10/04/21 08:59 Last Admin: 09/04/21 09:09 Dose: 5 mg Documented by: Hydroxyzine HCl (Hydroxyzine Hcl 25 Mg Tab) 50 mg PO HSZ PRN PRN Reason: Insomnia Stop: 10/02/21 10:06 Hydroxyzine HCl (Hydroxyzine Hcl 25 Mg Tab) 25 mg PO Q4H PRN PRN Reason: Anxiety Stop: 10/02/21 10:06 Last Admin: 09/03/21 09:57 Dose: 25 mg Documented by: Magnesium Hydroxide (Magnesium Hydroxide Susp 30 Ml Udc) 30 ml PO DAILY PRN PRN Reason: Constipation Stop: 10/02/21 10:06 Mirtazapine (Mirtazapine Tab 15 Mg Tab) 30 mg PO HS NEVAEH Stop: 10/02/21 21:59 Last Admin: 09/03/21 21:15 Dose: 30 mg Documented by: Oxcarbazepine (Oxcarbazepine 150 Mg Tablet) 600 mg PO BID NEVAEH Stop: 10/02/21 20:59 Last Admin: 09/04/21 09:08 Dose: 600 mg Documented by: Sodium Chloride (Sodium Chloride 0.65% Na Soln 45 Ml ([place])) 1 - 2 sprays NA PRN PRN PRN Reason: Nasal Dryness/Congestion Stop: 10/02/21 10:06 Post Discharge Appointments Primary Care Physician Name Of Family Doctor: [facility]
[2021-09-04] MEDS: MIRTAZAPINE TAB 15 MG TAB PO SCH (20:22)
[2021-09-05] MEDS: DIVALPROEX EXTENDED RELEASE 250 MG TABCR PO SCH ×2 (08:06→20:57)
[2021-09-05] MEDS: ESCITALOPRAM OXALATE 10 MG TAB PO SCH (08:07)
[2021-09-05] MEDS: OXcarbazepine 150 MG TABLET PO SCH ×2 (08:07→20:57)
--- NOTE | 2021-09-05 14:11 | Psychiatric Progress Note ---
Date of Service September 05, 2021 Impression / Recommendations Impression The patient is a is a 30-year-old man who is currently homeless with a history of depression, TBI and anger, multiple prior psychiatric hospitalizations (most recently at [facility] from 08/22-08/26) and was admitted for SI and suicide attempt of trying to step in front of a moving car. The patient is deemed unstable and requires psychiatric hospitalization for diagnostic clarification, safety and stabilization, medication management and development of further coping skills. Diagnostically consistent with MDD and TBI sequelae as well as likely BPD given positive screen and discussion about struggles with rejection and how this prompts self-harm and SI. Responding well to lexapro so far without any side effects and showing some ongoing slow improvement without any urges for self- harm though continues to endorse depression specifically related to lack of housing stressor and familial discord. -201 voluntary status (1) Major depression, recurrent: (2) Suicidal ideation: 09/05/21--Continue current regimen. Can consider increasing lexapro from 5 to 10 mg tomorrow. Utilizing exercise and talking with staff to help cope with fluctuations in mood. 09/04/21--Continue with current regimen. Will plan to increase lexapro in 1-2 days if it continues to be well tolerated at 5mg. Encouraging exercise as a way to cope with depression or feelings of rejection as this is a strength and positive activity in his life. 09/03/21--Addition of lexapro 5 mg qd for depression, will aim for low dose given hx of TBI and increased medication sensitivity associated with this. Has symptoms consistent with BPD and positive cherri screen. Discussed goals of ideally doing DBT therapy as an outpatient once he decides where to live. 09/02/21--Discussed medication options at length including risks, benefits, alternatives. Patient consented to increasing mirtazapine from 15 mg to 30 mg to help address depression and insomnia. May consider addition of leaxpro as he believes he has never tried this to help with depression but will wait to review recent records from [facility]. Will continue depakote and trileptal for seizures which he consents to. The patient was [facility] on q15 min checks (behavioral with suicide precautions) for safety. The patient will participate in group, recreational, and milieu therapies and will be offered additional individual and family sessions as clinically appropriate. Inventory Assets Strengths: has coping skills of exercising, positive relationship with his mother, likes to help others Needs: housing, outpatient providers Risk Factors Assessment Male: Yes : Yes Do You Have Access To A Gun?: No Health Problems: Yes Mental Health Diagnoses: Yes Substance Use Disorders: No Previous Attempt: Yes Family History of Suicide: No Previous Psychiatric Hospitalization: Yes Hopelessness: No Protective Factors Assessment Employed: No Supportive Family: Yes Interval History Identifying Information 30 yo man with history of depression, TBI, anger admitted on a 201 status for suicide behavior of attempting to step in front of a car. Chief Complaint "the medicine is helping". Review of Systems Sleep Information Total Hours of Sleep: 6.75 Meal Information Percent Meal Consumed - Breakfast: 100 Percent Meal Consumed - Lunch: 100 Percent Meal Consumed - Dinner: 100 Subjective Subjective Chart and events of last 24 hours reviewed and discussed with multidisciplinary treatment team including nursing and social work. No acute events reported overnight. Slept well. Eating well. Attending groups. Adherent with medications. Devyn notes some improvement in depression today and denies SI and denies urges for self-harm. He is finding the lexapro helpful and sleep is easier with the higher dose of mirtazapine with no reported side effects from any of his medications. Anxiety is rated as 3 (10=most severe) Depression is rated as 4 (10=most severe) Spent more than 20 minutes in the care and coordination of this patient of which greater than 50% was dedicated to counseling and coordination of care. Physical Exam Psychiatric Orientation: alert and oriented x 3 Apperance: appropriately dressed and appropriately groomed Eye Contact: good eye contact Motor Behavior: steady gait and station and no abnormal motor movements Speech: normal rate/rhythm/volume of speech Affect: + flat affect Thought Process: goal directed thought process Thought Content: reality based without delusions Homicidal Thoughts: denies homicidal thoughts Hallucinations: no auditory hallucinations and no visual hallucinations Cognition: recent memory grossly intact, remote memory grossly intact, attention grossly intact and language grossly intact Estimated Intelligence: consistent with education level Insight: + fair insight Judgement: + fair judgement Vital Signs (Past 24 Hours) Last Vital Signs Temp 36.4 C L 09/05/21 06:00 Pulse 69 09/05/21 06:40 Resp 14 09/05/21 06:00 BP 118/82 09/05/21 06:40 Pulse Ox 98 10/04/21 10:44 A physical exam was performed in the ED by Dr. Fernández for the purposes of medical clearance. I accept that physical as correct and adequate for the purposes of the inpatient physical exam. Results & Data ([facility]) Current Inpatient Medications Current Inpatient Medications: Current Inpatient Medications Acetaminophen (Acetaminophen 325 Mg Tab) 650 mg PO Q4H PRN PRN Reason: Headache or Minor Fever Stop: 10/02/21 10:06 Al Hydrox/Mg Hydrox/Simethicone (Aluminum/Magnesium Susp 30 Ml Udc) 30 ml PO Q4H PRN PRN Reason: GI Upset Stop: 10/02/21 10:06 Bismuth Subsalicylate (Bismuth Subsalicylate Liqd 236 Ml) 15 ml PO PRN PRN PRN Reason: Loose Stool Stop: 10/02/21 10:06 Divalproex Sodium (Divalproex Extended Release 250 Mg Tabcr) 750 mg PO BID NEVAEH Stop: 10/02/21 20:59 Last Admin: 09/05/21 08:06 Dose: 750 mg Documented by: Escitalopram Oxalate (Escitalopram Oxalate 10 Mg Tab) 5 mg PO QAM NEVAEH Stop: 10/04/21 08:59 Last Admin: 09/05/21 08:07 Dose: 5 mg Documented by: Hydroxyzine HCl (Hydroxyzine Hcl 25 Mg Tab) 50 mg PO HSZ PRN PRN Reason: Insomnia Stop: 10/02/21 10:06 Hydroxyzine HCl (Hydroxyzine Hcl 25 Mg Tab) 25 mg PO Q4H PRN PRN Reason: Anxiety Stop: 10/02/21 10:06 Last Admin: 09/03/21 09:57 Dose: 25 mg Documented by: Magnesium Hydroxide (Magnesium Hydroxide Susp 30 Ml Udc) 30 ml PO DAILY PRN PRN Reason: Constipation Stop: 10/02/21 10:06 Mirtazapine (Mirtazapine Tab 15 Mg Tab) 30 mg PO HS NEVAEH Stop: 10/02/21 21:59 Last Admin: 09/04/21 20:22 Dose: 30 mg Documented by: Oxcarbazepine (Oxcarbazepine 150 Mg Tablet) 600 mg PO BID NEVAEH Stop: 10/02/21 20:59 Last Admin: 09/05/21 08:07 Dose: 600 mg Documented by: Sodium Chloride (Sodium Chloride 0.65% Na Soln 45 Ml ([place])) 1 - 2 sprays NA PRN PRN PRN Reason: Nasal Dryness/Congestion Stop: 10/02/21 10:06 Post Discharge Appointments Primary Care Physician Name Of Family Doctor: [facility]
[2021-09-05] MEDS: MIRTAZAPINE TAB 15 MG TAB PO SCH (20:57)
[2021-09-06] MEDS: DIVALPROEX EXTENDED RELEASE 250 MG TABCR PO SCH ×2 (09:07→20:18)
[2021-09-06] MEDS: ESCITALOPRAM OXALATE 10 MG TAB PO SCH (09:08)
[2021-09-06] MEDS: OXcarbazepine 150 MG TABLET PO SCH ×2 (09:09→20:19)
--- NOTE | 2021-09-06 12:21 | Psychiatric Progress Note ---
Date of Service September 06, 2021 Impression / Recommendations Impression The patient is a is a 30-year-old man who is currently homeless with a history of depression, TBI and anger, multiple prior psychiatric hospitalizations (most recently at [facility] from 08/22-08/26) and was admitted for SI and suicide attempt of trying to step in front of a moving car. The patient is deemed unstable and requires psychiatric hospitalization for diagnostic clarification, safety and stabilization, medication management and development of further coping skills. Diagnostically consistent with MDD and TBI sequelae as well as likely BPD given positive screen and discussion about struggles with rejection and how this prompts self-harm and SI. Responding well to lexapro so far without any side effects and showing some ongoing improvement without any urges for self-harm though continues to endorse depression specifically related to lack of housing stressor and familial discord. -201 voluntary status (1) Major depression, recurrent: (2) Suicidal ideation: 09/06/21--Increase lexapro from 5 mg to 10mg qd starting tomorrow which he consented to after discussing risks, benefits, alternatives. Working with social work to find a potential temporary housing option as this is a driving factor for some of his depression and self-harm urges. 09/05/21--Continue current regimen. Can consider increasing lexapro from 5 to 10 mg tomorrow. Utilizing exercise and talking with staff to help cope with fluctuations in mood. 09/04/21--Continue with current regimen. Will plan to increase lexapro in 1-2 days if it continues to be well tolerated at 5mg. Encouraging exercise as a way to cope with depression or feelings of rejection as this is a strength and positive activity in his life. 09/03/21--Addition of lexapro 5 mg qd for depression, will aim for low dose given hx of TBI and increased medication sensitivity associated with this. Has symptoms consistent with BPD and positive cherri screen. Discussed goals of ideally doing DBT therapy as an outpatient once he decides where to live. 09/02/21--Discussed medication options at length including risks, benefits, alternatives. Patient consented to increasing mirtazapine from 15 mg to 30 mg to help address depression and insomnia. May consider addition of leaxpro as he believes he has never tried this to help with depression but will wait to review recent records from [facility]. Will continue depakote and trileptal for seizures which he consents to. The patient was admitted to the [facility] ([facility] inpatient mental health unit) on q15 min checks (behavioral with suicide precautions) for safety. The patient will participate in group, recreational, and milieu therapies and will be offered additional individual and family sessions as clinically appropriate. Inventory Assets Strengths: has coping skills of exercising, positive relationship with his mother, likes to help others Needs: housing, outpatient providers Risk Factors Assessment Male: Yes : Yes Do You Have Access To A Gun?: No Health Problems: Yes Mental Health Diagnoses: Yes Substance Use Disorders: No Previous Attempt: Yes Family History of Suicide: No Previous Psychiatric Hospitalization: Yes Hopelessness: No Protective Factors Assessment Employed: No Supportive Family: Yes Interval History Identifying Information 30 yo man with history of depression, TBI, anger admitted on a 201 status for suicide behavior of attempting to step in front of a car. Chief Complaint "I'm sore from exercising in the group". Review of Systems Sleep Information Total Hours of Sleep: 6.5 Meal Information Percent Meal Consumed - Breakfast: 100 Percent Meal Consumed - Lunch: 100 Percent Meal Consumed - Dinner: 100 Subjective Subjective Chart and events of last 24 hours reviewed and discussed with multidisciplinary treatment team including nursing and social work. No acute events reported overnight. Slept well. Eating well. Attending groups. Adherent with medications. He continues to find the lexapro helpful for reducing his depression and no reported side effects from their medication. Denies self-harm urges or SI. Met with Devyn with social work to discuss potential temporary housing options at local shelters after discharge with plan for discharge on Thursday or Thursday. Discussed that given his prior legal charges, and current bench warrant, the nursing home options are limited which he understands. Discussed one potential option that he has stayed at before and liked. Also discussed option for us to help him navigate the required next step for his legal warrant but he prefers to do this own stating he plans to "turn myself in" after discharge. He continues to find exercise helpful for his mood and is encouraged to continuing using this as a coping strategy. Spent more than 20 minutes in the care and coordination of this patient of which greater than 50% was dedicated to counseling and coordination of care. Physical Exam Psychiatric Orientation: alert and oriented x 3 Apperance: appropriately dressed and appropriately groomed Eye Contact: good eye contact Motor Behavior: steady gait and station and no abnormal motor movements Speech: normal rate/rhythm/volume of speech Affect: + flat affect Mood: + depressed mood Thought Process: goal directed thought process Thought Content: reality based without delusions Suicidal Thoughts: denies suicidal plan and denies suicidal intent Homicidal Thoughts: denies homicidal thoughts Hallucinations: no auditory hallucinations and no visual hallucinations Cognition: recent memory grossly intact, remote memory grossly intact, attention grossly intact and language grossly intact Estimated Intelligence: consistent with education level Insight: + fair insight Judgement: + fair judgement Vital Signs (Past 24 Hours) Last Vital Signs Temp 36.6 C 09/06/21 06:39 Pulse 83 09/06/21 06:40 Resp 16 09/06/21 06:39 BP 107/67 09/06/21 06:40 Pulse Ox 98 09/02/21 10:44 A physical exam was performed in the ED by Dr. Fernández for the purposes of medical clearance. I accept that physical as correct and adequate for the purposes of the inpatient physical exam. Results & Data ([facility]) Current Inpatient Medications Current Inpatient Medications: Current Inpatient Medications Acetaminophen (Acetaminophen 325 Mg Tab) 650 mg PO Q4H PRN PRN Reason: Headache or Minor Fever Stop: 10/02/21 10:06 Al Hydrox/Mg Hydrox/Simethicone (Aluminum/Magnesium Susp 30 Ml Udc) 30 ml PO Q4H PRN PRN Reason: GI Upset Stop: 10/02/21 10:06 Bismuth Subsalicylate (Bismuth Subsalicylate Liqd 236 Ml) 15 ml PO PRN PRN PRN Reason: Loose Stool Stop: 10/02/21 10:06 Divalproex Sodium (Divalproex Extended Release 250 Mg Tabcr) 750 mg PO BID NEVAEH Stop: 10/02/21 20:59 Last Admin: 09/06/21 09:07 Dose: 750 mg Documented by: Escitalopram Oxalate (Escitalopram Oxalate 10 Mg Tab) 5 mg PO QAM NEVAEH Stop: 10/04/21 08:59 Last Admin: 09/06/21 09:08 Dose: 5 mg Documented by: Hydroxyzine HCl (Hydroxyzine Hcl 25 Mg Tab) 50 mg PO HSZ PRN PRN Reason: Insomnia Stop: 10/02/21 10:06 Hydroxyzine HCl (Hydroxyzine Hcl 25 Mg Tab) 25 mg PO Q4H PRN PRN Reason: Anxiety Stop: 10/02/21 10:06 Last Admin: 09/03/21 09:57 Dose: 25 mg Documented by: Magnesium Hydroxide (Magnesium Hydroxide Susp 30 Ml Udc) 30 ml PO DAILY PRN PRN Reason: Constipation Stop: 10/02/21 10:06 Mirtazapine (Mirtazapine Tab 15 Mg Tab) 30 mg PO HS NEVAEH Stop: 10/02/21 21:59 Last Admin: 09/05/21 20:57 Dose: 30 mg Documented by: Oxcarbazepine (Oxcarbazepine 150 Mg Tablet) 600 mg PO BID NEVAEH Stop: 10/02/21 20:59 Last Admin: 09/06/21 09:09 Dose: 600 mg Documented by: Sodium Chloride (Sodium Chloride 0.65% Na Soln 45 Ml ([place])) 1 - 2 sprays NA PRN PRN PRN Reason: Nasal Dryness/Congestion Stop: 10/02/21 10:06 Post Discharge Appointments Primary Care Physician Name Of Family Doctor: [facility]
[2021-09-06] MEDS: MIRTAZAPINE TAB 15 MG TAB PO SCH (20:19)
[2021-09-07] MEDS: DIVALPROEX EXTENDED RELEASE 250 MG TABCR PO SCH ×2 (09:30→20:30)
[2021-09-07] MEDS: ESCITALOPRAM OXALATE 10 MG TAB PO SCH (09:30)
[2021-09-07] MEDS: OXcarbazepine 150 MG TABLET PO SCH ×2 (09:30→20:31)
--- NOTE | 2021-09-07 13:32 | Psychiatric Progress Note ---
Date of Service September 07, 2021 Impression / Recommendations Impression The patient is a is a 30-year-old man who is currently homeless with a history of depression, TBI and anger, multiple prior psychiatric hospitalizations (most recently at [facility] from 08/22-08/26) and was admitted for SI and suicide attempt of trying to step in front of a moving car. Continued inpatient hospitalization is medically necessary for ongoing monitoring and safety pending appropriate housing transition. (1) Major depression, recurrent: (2) Suicidal ideation: 09/07/21--Reviewed care by Dr. Lopez in italics. Order VPA level for am as although for seizures is also good mood stabilizer for patient with TBI. 09/06/21--Increase lexapro from 5 mg to 10mg qd starting tomorrow which he consented to after discussing risks, benefits, alternatives. Working with social work to find a potential temporary housing option as this is a driving factor for some of his depression and self-harm urges. 09/05/21--Continue current regimen. Can consider increasing lexapro from 5 to 10 mg tomorrow. Utilizing exercise and talking with staff to help cope with fluctuations in mood. 09/04/21--Continue with current regimen. Will plan to increase lexapro in 1-2 days if it continues to be well tolerated at 5mg. Encouraging exercise as a way to cope with depression or feelings of rejection as this is a strength and positive activity in his life. 09/03/21--Addition of lexapro 5 mg qd for depression, will aim for low dose given hx of TBI and increased medication sensitivity associated with this. Has symptoms consistent with BPD and positive cherri screen. Discussed goals of ideally doing DBT therapy as an outpatient once he decides where to live. 09/02/21--Discussed medication options at length including risks, benefits, alternatives. Patient consented to increasing mirtazapine from 15 mg to 30 mg to help address depression and insomnia. May consider addition of leaxpro as he believes he has never tried this to help with depression but will wait to review recent records from [facility]. Will continue depakote and trileptal for seizures which he consents to. The patient was admitted to the [facility] ([facility]) on q15 min checks (behavioral with suicide precautions) for safety. The patient will participate in group, recreational, and milieu therapies and will be offered additional individual and family sessions as clinically appropriate. Inventory Assets Strengths: has coping skills of exercising, positive relationship with his mother, likes to help others Needs: housing, outpatient providers Risk Factors Assessment Male: Yes : Yes Do You Have Access To A Gun?: No Health Problems: Yes Mental Health Diagnoses: Yes Substance Use Disorders: No Previous Attempt: Yes Family History of Suicide: No Previous Psychiatric Hospitalization: Yes Hopelessness: No Protective Factors Assessment Employed: No Supportive Family: Yes Interval History Identifying Information 30 yo man with history of depression, TBI, anger admitted on a 201 status for suicide behavior of attempting to step in front of a car. Chief Complaint "I just think I was let go too soon before and then go into it with my girlf shannon.". Review of Systems Sleep Information Total Hours of Sleep: 6.75 Meal Information Percent Meal Consumed - Breakfast: 90 Percent Meal Consumed - Lunch: 100 Percent Meal Consumed - Dinner: 100 Subjective Subjective Patient was seen & assessed and interval progress reviewed with nursing and social work. Cooperative with unit routine. Tolerating Lexapro. Amenable to pursuing [place] [employer] [place]. States had argument with mother over phone but has since reconciled. Physical Exam Psychiatric Orientation: alert and oriented x 3 Apperance: appropriately dressed and appropriately groomed Eye Contact: good eye contact Motor Behavior: steady gait and station and no abnormal motor movements Speech: normal rate/rhythm/volume of speech Affect: + constricted affect Mood: + depressed mood Thought Process: goal directed thought process Thought Content: reality based without delusions Suicidal Thoughts: denies suicidal plan and denies suicidal intent Homicidal Thoughts: denies homicidal thoughts Hallucinations: no auditory hallucinations and no visual hallucinations Cognition: recent memory grossly intact, remote memory grossly intact, attention grossly intact and language grossly intact Estimated Intelligence: consistent with education level Insight: + limited insight Judgement: + limited judgement Vital Signs (Past 24 Hours) Last Vital Signs Temp 36.5 C 09/07/21 06:35 Pulse 75 09/07/21 06:35 Resp 16 09/07/21 06:35 BP 127/86 09/07/21 06:35 Pulse Ox 98 09/02/21 10:44 Results & Data (U) Current Inpatient Medications Current Inpatient Medications: Current Inpatient Medications Acetaminophen (Acetaminophen 325 Mg Tab) 650 mg PO Q4H PRN PRN Reason: Headache or Minor Fever Stop: 11/03/21 10:06 Al Hydrox/Mg Hydrox/Simethicone (Aluminum/Magnesium Susp 30 Ml Udc) 30 ml PO Q4H PRN PRN Reason: GI Upset Stop: 10/02/21 10:06 Bismuth Subsalicylate (Bismuth Subsalicylate Liqd 236 Ml) 15 ml PO PRN PRN PRN Reason: Loose Stool Stop: 10/02/21 10:06 Divalproex Sodium (Divalproex Extended Release 250 Mg Tabcr) 750 mg PO BID NEVAEH Stop: 10/02/21 20:59 Last Admin: 09/07/21 09:30 Dose: 750 mg Documented by: Escitalopram Oxalate (Escitalopram Oxalate 10 Mg Tab) 10 mg PO QAM NEVAEH Stop: 10/07/21 08:59 Last Admin: 09/07/21 09:30 Dose: 10 mg Documented by: Hydroxyzine HCl (Hydroxyzine Hcl 25 Mg Tab) 50 mg PO HSZ PRN PRN Reason: Insomnia Stop: 10/02/21 10:06 Hydroxyzine HCl (Hydroxyzine Hcl 25 Mg Tab) 25 mg PO Q4H PRN PRN Reason: Anxiety Stop: 10/02/21 10:06 Last Admin: 09/03/21 09:57 Dose: 25 mg Documented by: Magnesium Hydroxide (Magnesium Hydroxide Susp 30 Ml Udc) 30 ml PO DAILY PRN PRN Reason: Constipation Stop: 10/02/21 10:06 Mirtazapine (Mirtazapine Tab 15 Mg Tab) 30 mg PO HS NEVAEH Stop: 10/02/21 21:59 Last Admin: 09/06/21 20:19 Dose: 30 mg Documented by: Oxcarbazepine (Oxcarbazepine 150 Mg Tablet) 600 mg PO BID NEVAEH Stop: 10/02/21 20:59 Last Admin: 09/07/21 09:30 Dose: 600 mg Documented by: Sodium Chloride (Sodium Chloride 0.65% Na Soln 45 Ml ([place])) 1 - 2 sprays NA PRN PRN PRN Reason: Nasal Dryness/Congestion Stop: 10/02/21 10:06 Post Discharge Appointments Primary Care Physician Name Of Family Doctor: [facility] Date of Appointment with PCP: 09/16/21 Time of Appointment with PCP: 9:30 a.m. Provider Appointment Comment: Telehealth
[2021-09-07] MEDS: MIRTAZAPINE TAB 15 MG TAB PO SCH (20:32)
[2021-09-08] MEDS: ESCITALOPRAM OXALATE 10 MG TAB PO SCH (09:12)
[2021-09-08] MEDS: OXcarbazepine 150 MG TABLET PO SCH ×2 (09:12→20:16)
[2021-09-08] MEDS: DIVALPROEX EXTENDED RELEASE 250 MG TABCR PO SCH ×2 (12:23→20:15)
--- NOTE | 2021-09-08 13:22 | Psychiatric Progress Note ---
Date of Service September 08, 2021 Impression / Recommendations Impression The patient is a is a 30-year-old man who is currently homeless with a history of depression, TBI and anger, multiple prior psychiatric hospitalizations (most recently at [facility] from 08/22-08/26) and was admitted for SI and suicide attempt of trying to step in front of a moving car. Continued inpatient hospitalization is medically necessary for ongoing monitoring and safety pending appropriate housing transition. 09/08/21--improving Plan: VPA level within therapeutic range. Reviewed with patient target range for seizure control vs irritability. He desires to continue medication unchanged. (1) Major depression, recurrent: (2) Suicidal ideation: Inventory Assets Strengths: has coping skills of exercising, positive relationship with his mother, likes to help others Needs: housing, outpatient providers Risk Factors Assessment Male: Yes : Yes Do You Have Access To A Gun?: No Health Problems: Yes Mental Health Diagnoses: Yes Substance Use Disorders: No Previous Attempt: Yes Family History of Suicide: No Previous Psychiatric Hospitalization: Yes Hopelessness: No Protective Factors Assessment Employed: No Supportive Family: Yes Interval History Identifying Information 30 yo man with history of depression, TBI, anger admitted on a 201 status for suicide behavior of attempting to step in front of a car. Chief Complaint "I'm feeling positive". Review of Systems Sleep Information Total Hours of Sleep: 6.5 Meal Information Percent Meal Consumed - Breakfast: 80 Percent Meal Consumed - Lunch: 100 Percent Meal Consumed - Dinner: 75 Subjective Subjective Patient was seen & assessed and interval progress reviewed with nursing and social work. Tolerating meds, no acute issues overnight--walks for exercise and wears head phones. Physical Exam Psychiatric Orientation: alert and oriented x 3 Apperance: appropriately dressed and appropriately groomed Eye Contact: good eye contact Motor Behavior: no abnormal motor movements Speech: normal rate/rhythm/volume of speech Affect: no depressed affect Mood: no depressed mood Thought Process: goal directed thought process Thought Content: reality based without delusions Suicidal Thoughts: denies suicidal thoughts Homicidal Thoughts: denies homicidal thoughts Hallucinations: no auditory hallucinations and no visual hallucinations Cognition: attention grossly intact and language grossly intact Estimated Intelligence: consistent with education level Insight: + limited insight Judgement: + limited judgement Vital Signs (Past 24 Hours) Last Vital Signs Temp 36.3 C L 09/08/21 06:50 Pulse 76 09/08/21 06:50 Resp 16 09/08/21 06:50 BP 120/82 09/08/21 06:50 Pulse Ox 98 09/02/21 10:44 Results & Data ([facility]) Laboratory Results Laboratory Results - last 24 hr 09/08/21 09:09 Valproic Acid 61 Current Inpatient Medications Current Inpatient Medications: Current Inpatient Medications Acetaminophen (Acetaminophen 325 Mg Tab) 650 mg PO Q4H PRN PRN Reason: Headache or Minor Fever Stop: 10/02/21 10:06 Al Hydrox/Mg Hydrox/Simethicone (Aluminum/Magnesium Susp 30 Ml Udc) 30 ml PO Q4H PRN PRN Reason: GI Upset Stop: 10/02/21 10:06 Bismuth Subsalicylate (Bismuth Subsalicylate Liqd 236 Ml) 15 ml PO PRN PRN PRN Reason: Loose Stool Stop: 10/02/21 10:06 Divalproex Sodium (Divalproex Extended Release 250 Mg Tabcr) 750 mg PO BID NEVAEH Stop: 10/02/21 20:59 Last Admin: 09/08/21 12:23 Dose: 750 mg Documented by: Escitalopram Oxalate (Escitalopram Oxalate 10 Mg Tab) 10 mg PO QAM NEVAEH Stop: 10/07/21 08:59 Last Admin: 09/08/21 09:12 Dose: 10 mg Documented by: Hydroxyzine HCl (Hydroxyzine Hcl 25 Mg Tab) 50 mg PO HSZ PRN PRN Reason: Insomnia Stop: 10/02/21 10:06 Hydroxyzine HCl (Hydroxyzine Hcl 25 Mg Tab) 25 mg PO Q4H PRN PRN Reason: Anxiety Stop: 10/02/21 10:06 Last Admin: 09/03/21 09:57 Dose: 25 mg Documented by: Magnesium Hydroxide (Magnesium Hydroxide Susp 30 Ml Udc) 30 ml PO DAILY PRN PRN Reason: Constipation Stop: 10/02/21 10:06 Mirtazapine (Mirtazapine Tab 15 Mg Tab) 30 mg PO HS NEVAEH Stop: 10/02/21 21:59 Last Admin: 09/07/21 20:32 Dose: 30 mg Documented by: Oxcarbazepine (Oxcarbazepine 150 Mg Tablet) 600 mg PO BID NEVAEH Stop: 10/02/21 20:59 Last Admin: 09/08/21 09:12 Dose: 600 mg Documented by: Sodium Chloride (Sodium Chloride 0.65% Na Soln 45 Ml ([place])) 1 - 2 sprays NA PRN PRN PRN Reason: Nasal Dryness/Congestion Stop: 10/02/21 10:06 Post Discharge Appointments Primary Care Physician Name Of Family Doctor: [facility] Date of Appointment with PCP: 09/16/21 Time of Appointment with PCP: 9:30 a.m. Provider Appointment Comment: Telehealth
[2021-09-08] MEDS: MIRTAZAPINE TAB 15 MG TAB PO SCH (20:16)
[2021-09-09] MEDS: DIVALPROEX EXTENDED RELEASE 250 MG TABCR PO SCH (09:01)
[2021-09-09] MEDS: ESCITALOPRAM OXALATE 10 MG TAB PO SCH (09:01)
[2021-09-09] MEDS: OXcarbazepine 150 MG TABLET PO SCH (09:02)
--- NOTE | 2021-09-09 09:52 | Psychiatric Progress Note ---
Date of Service September 09, 2021 Impression / Recommendations Impression The patient is a is a 30-year-old man who is currently homeless with a history of depression, TBI and anger, multiple prior psychiatric hospitalizations (most recently at [facility] from 08/22-08/26) and was admitted for SI and suicide attempt of trying to step in front of a moving car. Continued inpatient hospitalization is medically necessary for ongoing monitoring and safety pending appropriate housing transition. 09/08/21--improving Plan: VPA level within therapeutic range. Reviewed with patient target range for seizure control vs irritability. He desires to continue medication unchanged. (1) Major depression, recurrent: (2) Suicidal ideation: 09/07/21--Reviewed care by Dr. Lopez in italics. Order VPA level for am as although for seizures is also good mood stabilizer for patient with TBI. 09/06/21--Increase lexapro from 5 mg to 10mg qd starting tomorrow which he consented to after discussing risks, benefits, alternatives. Working with social work to find a potential temporary housing option as this is a driving factor for some of his depression and self-harm urges. 09/05/21--Continue current regimen. Can consider increasing lexapro from 5 to 10 mg tomorrow. Utilizing exercise and talking with staff to help cope with fluctuations in mood. 09/04/21--Continue with current regimen. Will plan to increase lexapro in 1-2 da ys if it continues to be well tolerated at 5mg. Encouraging exercise as a way to cope with depression or feelings of rejection as this is a strength and positive activity in his life. 09/03/21--Addition of lexapro 5 mg qd for depression, will aim for low dose given hx of TBI and increased medication sensitivity associated with this. Has symptoms consistent with BPD and positive cherri screen. Discussed goals of ideally doing DBT therapy as an outpatient once he decides where to live. 09/02/21--Discussed medication options at length including risks, benefits, alternatives. Patient consented to increasing mirtazapine from 15 mg to 30 mg to help address depression and insomnia. May consider addition of leaxpro as he believes he has never tried this to help with depression but will wait to review recent records from [facility]. Will continue depakote and trileptal for seizures which he consents to. The patient was admitted to the [facility] ([facility] mental health unit) on q15 min checks (behavioral with suicide precautions) for safety. The patient will participate in group, recreational, and milieu therapies and will be offered additional individual and family sessions as clinically appropriate. Inventory Assets Strengths: has coping skills of exercising, positive relationship with his mother, likes to help others Needs: housing, outpatient providers Risk Factors Assessment Male: Yes : Yes Do You Have Access To A Gun?: No Health Problems: Yes Mental Health Diagnoses: Yes Substance Use Disorders: No Previous Attempt: Yes Family History of Suicide: No Previous Psychiatric Hospitalization: Yes Hopelessness: No Protective Factors Assessment Employed: No Supportive Family: Yes Interval History Identifying Information 30 yo man with history of depression, TBI, anger admitted on a 201 status for suicide behavior of attempting to step in front of a car. Chief Complaint "[]". Review of Systems Sleep Information Total Hours of Sleep: 6.5 Sleep Comments: pt on q-15 minute checks Meal Information Percent Meal Consumed - Breakfast: 100 Percent Meal Consumed - Lunch: 100 Percent Meal Consumed - Dinner: 100 Subjective Subjective Patient was seen & assessed and interval progress reviewed with [treatment team] [nursing and social work] Physical Exam Vital Signs (Past 24 Hours) Last Vital Signs Temp 36.5 C 09/09/21 06:45 Pulse 65 09/09/21 06:50 Resp 16 09/09/21 06:45 BP 114/78 09/09/21 06:50 Pulse Ox 98 09/02/21 10:44 A physical exam was performed in the ED by Dr. Fernández for the purposes of medical clearance. I accept that physical as correct and adequate for the purposes of the inpatient physical exam. Results & Data ([facility]) Laboratory Results Laboratory Results - last 24 hr 09/08/21 09:09 Valproic Acid 61 Current Inpatient Medications Current Inpatient Medications: Current Inpatient Medications Acetaminophen (Acetaminophen 325 Mg Tab) 650 mg PO Q4H PRN PRN Reason: Headache or Minor Fever Stop: 10/02/21 10:06 Al Hydrox/Mg Hydrox/Simethicone (Aluminum/Magnesium Susp 30 Ml Udc) 30 ml PO Q4H PRN PRN Reason: GI Upset Stop: 10/02/21 10:06 Bismuth Subsalicylate (Bismuth Subsalicylate Liqd 236 Ml) 15 ml PO PRN PRN PRN Reason: Loose Stool Stop: 10/02/21 10:06 Divalproex Sodium (Divalproex Extended Release 250 Mg Tabcr) 750 mg PO BID NEVAEH Stop: 10/02/21 20:59 Last Admin: 09/09/21 09:01 Dose: 750 mg Documented by: Escitalopram Oxalate (Escitalopram Oxalate 10 Mg Tab) 10 mg PO QAM NEVAEH Stop: 10/07/21 08:59 Last Admin: 09/09/21 09:01 Dose: 10 mg Documented by: Hydroxyzine HCl (Hydroxyzine Hcl 25 Mg Tab) 50 mg PO HSZ PRN PRN Reason: Insomnia Stop: 10/02/21 10:06 Hydroxyzine HCl (Hydroxyzine Hcl 25 Mg Tab) 25 mg PO Q4H PRN PRN Reason: Anxiety Stop: 10/02/21 10:06 Last Admin: 09/03/21 09:57 Dose: 25 mg Documented by: Magnesium Hydroxide (Magnesium Hydroxide Susp 30 Ml Udc) 30 ml PO DAILY PRN PRN Reason: Constipation Stop: 10/02/21 10:06 Mirtazapine (Mirtazapine Tab 15 Mg Tab) 30 mg PO HS NEVAEH Stop: 10/02/21 21:59 Last Admin: 09/08/21 20:16 Dose: 30 mg Documented by: Oxcarbazepine (Oxcarbazepine 150 Mg Tablet) 600 mg PO BID NEVAEH Stop: 10/02/21 20:59 Last Admin: 09/09/21 09:02 Dose: 600 mg Documented by: Sodium Chloride (Sodium Chloride 0.65% Na Soln 45 Ml ([place])) 1 - 2 sprays NA PRN PRN PRN Reason: Nasal Dryness/Congestion Stop: 10/02/21 10:06 Mental Health & Subst Abuse Tx Therapist Name of Therapist: [facility] The[facility]ist's Therapy Appointment Comment: [address] [facility], [address], [place] Post Discharge Appointments Primary Care Physician Name Of Family Doctor: [facility] Date of Appointment with PCP: 09/16/21 Time of Appointment with PCP: 9:30 a.m. Provider Appointment Comment: Telehealth Contact Information Discharge
--- NOTE | 2021-09-09 09:52 | Discharge Summary ---
Date of Service September 09, 2021 History of Present Illness As per admitting psychiatrist: Devyn presents for psychiatric admission for SI and suicide attempt via walking into traffic in the context of a history of depression and recent psychosocial stressors. He was recently discharged from [facility] psychiatry unit on 08/26/21 for depression and SI. After leaving he returned home with his girlfriend in [place] but they then broke up and he had to leave. Since that time, for about 4 days, he hasn't had access to his medication. On 08/31 he presented to the ED due to chest pain and after discharge was staying in the [facility] on the [facility] for the last two days. Yesterday he broke up with an older girlfriend he reconnected with which was a stressor and then when he tried talking to his brother his brother made hurtful comments including "no one would miss you if you were gone" which prompted him to feel suicidal and resulted in the suicide attempt of trying to step in front of a car. Currently he endorses depressive symptoms of low mood, hopelessness, anhedonia, decreased sleep, decreased energy, low appetite and SI. Currently has SI but without plan or intent and feels safe on the unit and that he can talk to nursing should thoughts intensify. Pertinent ROS notable for anxiety, history of panic attacks (twice in the past), hx of psychotic symptoms in the past of AH, no hx of brie, no significant substance use, hx prior suicide attempts, at times experiences flashbacks and night terrors related to trauma, hx seizures last seizure was one month ago related to stress. Physical Exam Mental Examination See admission H&P and DOD summary. Vital Signs (Past 24 Hours) Last Vital Signs Temp 36.5 C 09/09/21 06:45 Pulse 65 09/09/21 06:50 Resp 16 09/09/21 06:45 BP 114/78 09/09/21 06:50 Pulse Ox 98 09/02/21 10:44 Principal Diagnosis depressive disorder Psychiatric Data See daily stay summary. In short, safety was maintained and the patient was cooperative with care. Medication changes included restarting his Depakote and increasing Remeron and adding a Lexapro trial. They tolerated this well. A safety plan was completed prior to discharge. Initially is was believed he would need to pursue assisted placement but he was able to locate a friend he can stay with until he is able to find a room to rent later this month. Day of Discharge Assessment Today the patient voices readiness for discharge. They note improvement in mood and deny thoughts to harm self or others. Thoughts remain organized and they are improved from admission. There is no evidence of psychosis. They agree to take mediations as prescribed and keep follow-up appointments. They are stable for discharge to outpatient level of care. Transition of Care Transition Of Care Record: was reviewed with the patient Advance Directives Advance Directives Information Provided: Yes Advance Directives: No Mental Health Advance Directive: No Advance Directives on File: No Living Will: No Power of Sales Representative Facility Services: No Advance Directives Reason:: Declines as Mental Health Visit. Risk Factors Assessment Male: Yes : Yes Do You Have Access To A Gun?: No Health Problems: Yes Mental Health Diagnoses: Yes Substance Use Disorders: No Previous Attempt: Yes Family History of Suicide: No Previous Psychiatric Hospitalization: Yes Hopelessness: No Protective Factors Assessment Employed: No Supportive Family: Yes Tobacco Cessation at Discharge Tobacco Cessation Medication Prescribed at Discharge: Not Applicable/Non-Smoker Total Time Total Time Spent: Greater Than 30 Minutes Total Time Includes: Examination of the patient, Discharge Planning and M edication Reconciliation Discharge Data Lab Results 09/01/21 09/01/21 09/01/21 19:25 19:25 19:36 WBC 6.10 RBC 4.91 Hgb 14.6 Hct 42.6 MCV 86.8 MCH 29.7 MCHC 34.3 RDW Std Deviation 43.3 RDW Coeff of Thai 13.6 Plt Count 158 MPV 12.2 H Immature Gran % (Auto) 0.0 Neut % (Auto) 62.1 Lymph % (Auto) 30.0 Clarke % (Auto) 6.6 Eos % (Auto) 1.1 Baso % (Auto) 0.2 Neut # (Auto) 3.79 Lymph # (Auto) 1.83 Clarke # (Auto) 0.40 Eos # (Auto) 0.07 Baso # (Auto) 0.01 Immature Gran # (Auto) 0.00 Sodium Potassium Chloride Carbon Dioxide Anion Gap BUN Creatinine Est Cr Clr Drug Dosing Est GFR ( Amer) Est GFR (Non-Af Amer) BUN/Creatinine Ratio Glucose Calcium Total Bilirubin AST ALT Alkaline Phosphatase Total Protein Albumin Globulin Albumin/Globulin Ratio TSH Free T4 Urine Color Yellow Urine Appearance Clear Urine pH 7.0 Ur Specific Midland 1.022 Urine Protein Negative Urine Glucose (UA) Negative Urine Ketones Negative Urine Blood Negative Urine Nitrite Negative Urine Bilirubin Negative Urine Urobilinogen Negative Ur Leukocyte Esterase Negative Salicylates Urine Opiates Screen Neg Ur Methadone, Qual Neg Acetaminophen Urine Barbiturates Neg Valproic Acid Ur Phencyclidine (PCP) Neg U Amphetamin/Meth Scrn Neg MDMA (Ecstasy) Screen Neg U Benzodiazepines Scrn Neg Ur Cocaine Metabolite Neg U Marijuana (THC) Screen Neg Ethyl Alcohol mg/dL COVID-19 Eval Order SARS-CoV-2 (PCR) 09/01/21 09/01/21 09/01/21 19:36 19:36 19:36 WBC RBC Hgb Hct MCV MCH MCHC RDW Std Deviation RDW Coeff of Thai Plt Count MPV Immature Gran % (Auto) Neut % (Auto) Lymph % (Auto) Clarke % (Auto) Eos % (Auto) Baso % (Auto) Neut # (Auto) Lymph # (Auto) Clarke # (Auto) Eos # (Auto) Baso # (Auto) Immature Gran # (Auto) Sodium 140 Potassium 3.5 Chloride 105 Carbon Dioxide 26 Anion Gap 9.0 BUN 16 Creatinine 0.80 Est Cr Clr Drug Dosing 149.7 Est GFR ( Amer) 139.9 Est GFR (Non-Af Amer) 120.7 BUN/Creatinine Ratio 20.4 H Glucose 88 Calcium 9.3 Total Bilirubin 0.5 AST 22 ALT 28 Alkaline Phosphatase 74 Total Protein 7.4 Albumin 3.8 Globulin 3.6 Albumin/Globulin Ratio 1.1 TSH 5.650 H Free T4 1.12 Urine Color Urine Appearance Urine pH Ur Specific Midland Urine Protein Urine Glucose (UA) Urine Ketones Urine Blood Urine Nitrite Urine Bilirubin Urine Urobilinogen Ur Leukocyte Esterase Salicylates < 1.7 L Urine Opiates Screen Ur Methadone, Qual Acetaminophen < 2 L Urine Barbiturates Valproic Acid 5 L Ur Phencyclidine (PCP) U Amphetamin/Meth Scrn MDMA (Ecstasy) Screen U Benzodiazepines Scrn Ur Cocaine Metabolite U Marijuana (THC) Screen Ethyl Alcohol mg/dL < 3.0 COVID-19 Eval Order SARS-CoV-2 (PCR) 09/01/21 09/01/21 09/08/21 19:40 19:40 09:09 WBC RBC Hgb Hct MCV MCH MCHC RDW Std Deviation RDW Coeff of Thai Plt Count MPV Immature Gran % (Auto) Neut % (Auto) Lymph % (Auto) Clarke % (Auto) Eos % (Auto) Baso % (Auto) Neut # (Auto) Lymph # (Auto) Clarke # (Auto) Eos # (Auto) Baso # (Auto) Immature Gran # (Auto) Sodium Potassium Chloride Carbon Dioxide Anion Gap BUN Creatinine Est Cr Clr Drug Dosing Est GFR ( Amer) Est GFR (Non-Af Amer) BUN/Creatinine Ratio Glucose Calcium Total Bilirubin AST ALT Alkaline Phosphatase Total Protein Albumin Globulin Albumin/Globulin Ratio TSH Free T4 Urine Color Urine Appearance Urine pH Ur Specific Midland Urine Protein Urine Glucose (UA) Urine Ketones Urine Blood Urine Nitrite Urine Bilirubin Urine Urobilinogen Ur Leukocyte Esterase Salicylates Urine Opiates Screen Ur Methadone, Qual Acetaminophen Urine Barbiturates Valproic Acid 61 Ur Phencyclidine (PCP) U Amphetamin/Meth Scrn MDMA (Ecstasy) Screen U Benzodiazepines Scrn Ur Cocaine Metabolite U Marijuana (THC) Screen Ethyl Alcohol mg/dL COVID-19 Eval Order Covid19 at [facility] SARS-CoV-2 (PCR) NEGATIVE Hospital Course (1) Major depression, recurrent: (2) Suicidal ideation: 09/07/21--Reviewed care by Dr. Lopez in italics. Order VPA level for am as although for seizures is also good mood stabilizer for patient with TBI. 09/06/21--Increase lexapro from 5 mg to 10mg qd starting tomorrow which he consented to after discussing risks, benefits, alternatives. Working with social work to find a potential temporary housing option as this is a driving factor for some of his depression and self-harm urges. 09/05/21--Continue current regimen. Can consider increasing lexapro from 5 to 10 mg tomorrow. Utilizing exercise and talking with staff to help cope with fluctuations in mood. 09/04/21--Continue with current regimen. Will plan to increase lexapro in 1-2 days if it continues to be well tolerated at 5mg. Encouraging exercise as a way to cope with depression or feelings of rejection as this is a strength and positive activity in his life. 09/03/21--Addition of lexapro 5 mg qd for depression, will aim for low dose given hx of TBI and increased medication sensitivity associated with this. Has symptoms consistent with BPD and positive cherri screen. Discussed goals of ideally doing DBT therapy as an outpatient once he decides where to live. 09/02/21--Discussed medication options at length including risks, benefits, alternatives. Patient consented to increasing mirtazapine from 15 mg to 30 mg to help address depression and insomnia. May consider addition of leaxpro as he believes he has never tried this to help with depression but will wait to review recent records from [place] hospitalization. Will continue depakote and trileptal for seizures which he consents to. The patient was admitted to the [facility] ([facility] mental health unit) on q15 min checks (behavioral with suicide precautions) for safety. The patient will participate in group, recreational, and milieu therapies and will be offered additional individual and family sessions as clinically appropriate. Mental Health & Subst Abuse Tx Therapist Name of Therapist: [facility] Therapist's Therapy Appointment Comment: [address], [address], [place] Post Discharge Appointments Primary Care Physician Name Of Family Doctor: [facility] Date of Appointment with PCP: 09/16/21 Time of Appointment with PCP: 9:30 a.m. Provider Appointment Comment: Telehealth Smoking Cessation Counseling Tobacco Cessation Medication Prescribed at Discharge: Not Applicable/Non-Smoker Contact Information Discharge Discharge Plan Discharge Items Patient Disposition: Home - Self-Care Reason For Visit: SUICIDAL Discharge Diagnosis: depressive disorder Activity: Resume your previous activity Non-emergency contact: Primary Care Provider, Psychiatrist and Therapist Call non-emergency contact if: you have any medication questions and your symptoms worsen Follow-up/Referrals: PCP,NO [Primary Care Provider] - Diet: Regular Addtl Attending Provider Instructions: SPECIAL CARE INSTRUCTIONS: 1. Follow through with your scheduled aftercare appointments. If unable to keep an appointment, please call to reschedule. 2. Take your medication only as prescribed. Medication should not be changed or stopped without the approval of your doctor. In the event of worsening symptoms or concerns about side effects, contact your doctor immediately. 3. Utilize new healthy coping skills, anger management skills, and stress management skills learned during your hospitalization. Journal feelings and process them with a support person. Identify stressors or situations that may result in relapse, deterioration or inappropriate behaviors and develop a plan to deal with those issues. 4. If your coping skills are ineffective and you are in crisis, contact your outpatient providers for direction. If unable to reach your providers, please call the [facility] CRISIS LINE AT , go to the [facility] walk-in center at [address], [address], [place], or go to the closest Emergency Room. 5. Avoid alcohol and un-prescribed drugs. 6. You have been provided with the Mental Health Advance Directives Pamphlet for your review. 7. Your condition is stable for discharge to outpatient level of care, but recovery is an ongoing process. Ifthoughts to harm yourself or others return, follow the safety plan developed during your stay. Planning for a safe return home includes securing weapons. Our treatment team recommends weaponsbe removed from the home until your outpatient provider reassesses your progress. In rare cases where the items themselvescannot be removed, guns and ammunitionshould be secured separatelyand keys stored by a reliable personoutside of the home. If you were admitted on an involuntary commitment, the police or other legal authorities may be involved in this process. AFTERCARE APPOINTMENTS: * Please call your insurance company prior to your scheduled appointment to confirm your aftercare providers are covered. Take your insurance information to your appointments. WHO TO CALL AND WHEN: Medical Emergencies: For questions or emergencies related to your hospital stay, please contact the Inpatient Behavioral Health Unit at [phone]. A human resource statistician is on-call 22/06 for the Behavioral Health Unit for emergencies At any time you feel your situation is an emergency, you may also call 911 immediately. Pending Studies at Discharge: No Stand-Alone Forms: [facility], Smoking Cessation Medications and DC Order Prescriptions: New escitalopram oxalate 10 mg Tablet 10 mg PO QAM 30 Days Qty: 30 RF: 0 mirtazapine 30 mg tablet 30 mg PO HS 30 Days Qty: 30 RF: 0 Continued divalproex [Depakote ER] 500 mg tablet extended release 24 hr 500 mg PO BID 30 Days Qty: 60 RF: 0 oxcarbazepine [Trileptal] 600 mg tablet 600 mg PO BID 30 Days Qty: 60 RF: 0 divalproex [Depakote ER] 250 mg tablet extended release 24 hr 250 mg PO BID 30 Days Qty: 60 RF: 0 Discontinued mirtazapine [Remeron] 15 mg tablet 15 mg PO HS RF: 0 Discharge Orders: Discharge Order (Routine); Ordered 09/09/21 Ordered By: Scarlett Hunter Admission Data Admit Date/Time: 09/02/21 10:07 Attending Provider: Scarlett Hunter Admit Provider: Stacy Lopez Primary Care Provider: PCP,NO Other Interventions: Discharge Summary Assessment (RN) Last Done: 09/09/21 09:59 PSY Interdisciplinary Discharge Planning Last Done: 09/09/21 10:15 Coding Level of Care Code 68356 D/C day mgmt > 30 min Diagnoses Major depression, recurrent F33.9 Suicidal ideation R45.851
== END 2021-09-09 10:25 | disposition home or self-care (01) | DRG 885 ==
LOC: ED 19:02 → 3S 09-02 10:07 → SUATTDRO 09-02 10:07 → 3S 09-02 10:44